=== PATIENT | female | born 2000 | race Caucasian/White ===

== ENCOUNTER 2018-09-22 23:46 | Emergency (ER) | payer OTHER ==
[~2018-09-22] VITALS: Ht 152.4 cm; Wt 101.2 kg
[2018-09-23 00:55] VITALS: BP 146/88; TEMP 98.1
== END 2018-09-23 00:56 | disposition home or self-care (01) ==
LOC: ED 23:46
DX: O60.03 Preterm labor without delivery, third trimester (principal); Z3A.38 38 weeks gestation of pregnancy; W19.XXXA Unspecified fall, initial encounter
CPT/HCPCS: 99284

== ENCOUNTER 2020-06-09 20:56 | Emergency (ER) | payer OTHER ==
[~2020-06-09] VITALS: Ht 152.4 cm; Wt 92.5 kg
[2020-06-09 21:48] VITALS: BP 110/62; TEMP 98.6
== END 2020-06-09 21:48 | disposition home or self-care (01) ==
LOC: ED 20:56
DX: L50.8 Other urticaria (principal)
CPT/HCPCS: 96372; 99283; J1200; J2930

== ENCOUNTER 2022-07-05 08:12 | Emergency (ER) | payer OTHER ==
[~2022-07-05] VITALS: Ht 157.5 cm; Wt 102.1 kg
[2022-07-05 08:12] VITALS: TEMP 98.1
[2022-07-05 10:05] VITALS: BP 126/68
== END 2022-07-05 10:10 | disposition home or self-care (01) ==
LOC: ED 08:12
DX: Z04.1 Encounter for examination and observation following transport accident (principal); Z3A.22 22 weeks gestation of pregnancy
CPT/HCPCS: 99284

== ENCOUNTER 2023-03-26 12:55 | Outpatient (CLI) | payer OTHER ==
[2023-03-26 13:33] LABS: POTASSIUM 3.5 mmol/L (3.6-5.2)
== END 2023-03-26 20:27 | disposition home or self-care (01) ==
LOC: LABW 12:55
PROVIDERS: ATTEND Nurse Practitioner Family
DX: U07.1 COVID-19 (principal)
CPT/HCPCS: 36415; 80053